=== PATIENT | female | born 2000 | race Caucasian/White ===

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

== ENCOUNTER 2021-02-09 01:56 | Inpatient (IN) ==
[2021-02-09] MEDS ORDERED: OXYTOCIN 30 UNITS/500 ML BAG IV PRN ×3 (03:31→14:23)
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
[2021-02-09 04:09] LABS: Hematocrit (blood only) 35.8 % (37-47); Mean Corpuscular Hemoglobin 27.3 pg (25-34); Mean Corpuscular Hgb Conc 33.5 g/dL (32-36); Mean Corpuscular Volume 81.4 fL (80-100); Mean Platelet Volume 9.1 fL (7.4-10.4); Platelet Count 264 K/uL (130-400); RDW Standard Deviation 41.6 fL (36.4-46.3); White Blood Count 10.83 K/uL (4.8-10.8)
[2021-02-09] MEDS: LACTATED RINGER'S 1,000 ML IV PRN ×3 (06:04→12:39)
[2021-02-09] MEDS ORDERED: ePHEDrine sulfate 50 MG/ML AMP ONE (06:33)
[2021-02-09] MEDS ORDERED: SODIUM CHLORIDE 0.9% INJ 10 ML VIAL ONE (06:33)
[2021-02-09] MEDS ORDERED: BUPIVACAINE 0.25% 30 ML VIAL ONE (06:33)
[2021-02-09] MEDS ORDERED: fentaNYL 2MCG/ML ROPIVACAINE 1.25MG/ML 100 ML BAG EPI ONE (06:34)
[2021-02-09] MEDS ORDERED: fentaNYL citrate 100 MCG/2 ML VIAL ONE (06:34)
[2021-02-09] MEDS ORDERED: diphenhydrAMINE 50 MG/ML VIAL IV PRN (06:38)
[2021-02-09] MEDS ORDERED: NALOXONE HCL 0.4 MG/1 ML VIAL/CARP IV PRN (06:38)
[2021-02-09] MEDS ORDERED: NALOXONE HCL 1 MG in SODIUM CHLORIDE 0.9% 1000ML 1,000 ML IV PRN (06:38)
[2021-02-09] MEDS ORDERED: fentaNYL 2MCG/ML ROPIVACAINE 1.25MG/ML 100 ML BAG EPI PRN (06:38)
[2021-02-09] MEDS ORDERED: ONDANSETRON INJ 2 MG/ML 2 ML VIAL IV PRN (06:38)
[2021-02-09] MEDS ORDERED: ePHEDrine sulfate 50 MG/ML AMP IV PRN (06:38)
[2021-02-09] MEDS ORDERED: fentaNYL citrate 100 MCG/2 ML VIAL IV PRN (06:38)
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
[2021-02-09] MEDS ORDERED: SODIUM CHLORIDE 0.9% 1000ML 1,000 ML IV PRN (07:46)
[2021-02-09] MEDS ORDERED: DEXTROSE 5% 1,000 ML IV PRN (07:46)
[2021-02-09] MEDS ORDERED: DEXTROSE 50% 50 ML SYRINGE IV PRN ×2 (07:46→17:00)
[2021-02-09] MEDS ORDERED: INSULIN REGULAR 250 UNITS in SODIUM CHLORIDE 0.9% 247.5 ML IV PRN (08:14)
--- NOTE | 2021-02-09 11:35 | Labor Progress Brief Note ---
Date of Service February 09, 2021 Subjective Patient undergoing IOL for PROM. Recent variable decels noted by RN therefore pitocin off, resusc measures taken. Comfortable with epidural. Assessment & Plan (1) Full-term premature rupture of membranes (PROM) with unknown onset of labor: IOL (2) Type 2 diabetes mellitus affecting , antepartum: Insulin protocol Admission and Anticipated Discharge Date Admission Date: February 09, 2021 Physical Exam Physical Exam: lip / 100 / 0 Clear LOF [place] Q3 FHT cat 2 with deep variables during each contraction FSE and IUPC placed without difficulty after discussing r/b/a with patient and FOB. Possible amnioinfusion was the reason for IUPC. FSE placed to allow transition to all-internal monitors for improved patient comfort. After that point, patient repositioned and monitoring showed improvement to Cat 1. Results & Data ([facility]) Vital Signs (Past 12 Hours) Vital Signs Temp Pulse Resp BP Pulse Ox 02/09/21 11:29 86 100 02/09/21 11:24 81 100 02/09/21 11:21 84 121/66 02/09/21 11:19 87 99 02/09/21 11:14 88 100 02/09/21 11:09 82 100 02/09/21 11:06 80 119/64 02/09/21 11:04 78 100 02/09/21 10:59 82 100 02/09/21 10:54 86 97 02/09/21 10:51 82 115/65 02/09/21 10:49 85 97 02/09/21 10:44 73 98 02/09/21 10:39 78 98 02/09/21 10:37 76 108/59 L 02/09/21 10:34 82 97 02/09/21 10:29 89 97 02/09/21 10:24 80 97 02/09/21 10:22 75 112/64 02/09/21 10:19 81 98 02/09/21 10:14 83 98 02/09/21 10:09 78 98 02/09/21 10:06 87 128/58 L 02/09/21 10:04 82 98 02/09/21 09:59 89 18 98 02/09/21 09:54 81 98 02/09/21 09:51 90 114/70 02/09/21 09:49 84 98 02/09/21 09:44 91 H 98 02/09/21 09:39 77 98 02/09/21 09:36 82 108/67 02/09/21 09:34 79 99 02/09/21 09:29 80 20 98 02/09/21 09:24 83 99 02/09/21 09:21 78 112/69 02/09/21 09:19 79 98 02/09/21 09:14 78 98 02/09/21 09:09 84 99 02/09/21 09:07 84 117/69 02/09/21 09:04 92 H 98 02/09/21 09:00 20 02/09/21 08:59 76 98 02/09/21 08:54 86 98 02/09/21 08:52 84 110/66 02/09/21 08:49 101 H 98 02/09/21 08:44 87 97 02/09/21 08:39 85 97 02/09/21 08:36 87 101/57 L 02/09/21 08:34 88 98 02/09/21 08:30 20 02/09/21 08:29 88 97 02/09/21 08:26 82 94 02/09/21 08:24 96 H 99 02/09/21 08:21 75 106/58 L 02/09/21 08:19 80 97 02/09/21 08:14 87 98 02/09/21 08:09 86 97 02/09/21 08:06 81 106/61 02/09/21 08:04 87 96 02/09/21 07:59 79 20 96 02/09/21 07:54 85 97 02/09/21 07:51 92 H 107/60 02/09/21 07:49 94 H 98 02/09/21 07:44 82 97 02/09/21 07:39 89 98 02/09/21 07:34 99 H 97 02/09/21 07:32 88 110/66 02/09/21 07:29 91 H 20 98 02 07:26 85 102/60 02/09/21 07:24 85 98 02/09/21 07:20 82 117/71 02/09/21 07:19 84 99 02/09/21 07:17 90 112/63 02 07:14 89 108/63 99 02/09/21 07:10 91 H 119/70 07/02/21 07:09 102 H 99 02/09/21 07:07 88 120/70 02/09/21 07:05 96 H 93 02/09/21 07:04 96 H 98 02/09/21 07:01 96 H 117/69 02/09/21 06:59 89 99 02/09/21 06:56 97.7 F 20 02/09/21 06:54 88 98 02/09/21 06:01 85 18 109/58 L 02/09/21 05:02 91 H 18 107/63 02/09/21 04:40 98.1 F 16 02/09/21 03:59 85 118/74 02/09/21 03:28 98.1 F 18 02/09/21 02:10 18 02/09/21 02:07 98.1 F 86 18 119/68 Coding Level of Care Code None Diagnoses Full-term premature rupture of membranes (PROM) with unknown onset of labor O42.90 Type 2 diabetes mellitus affecting , antepartum O24.119
--- NOTE | 2021-02-09 14:04 | Delivery Summary ---
Vaginal Delivery Summary Date of Service February 09, 2021 Vaginal Delivery Summary DIAGNOSES: 1. Romeo intrauterine at 38w2d gestation. 2. PROM, IOL. 3. Group B Streptococcus Neg. PROCEDURE: Spontaneous vaginal delivery and repair of first degree laceration. SURGEON: Mica Cook MD. TUBER MACHINE OPERATOR HELPER: None. ESTIMATED BLOOD LOSS: 450 mL. COMPLICATIONS: None. PLACENTA: Spontaneous and intact with a 3-vessel cord. DISPOSITION: Stable to labor and delivery. DESCRIPTION: The patient pushed well and brought the head to in LOP position with asynclitism. The infant's head was allowed to deliver with contraction force and no further active pushing, with the perineum protected during this time. There was a double loop of nuchal cord, reduced at the perineum. The shoulders and body delivered without any difficulty, and the was placed on the maternal abdomen. It was vigorous and moving all extremities, and making respiratory efforts. The cord was doubly clamped by the MD and then cut by the FOB. The placenta delivered spontaneously and was noted to be intact and with a 3VC. The cervix, vagina and perineum were examined and were found to have a first degree laceration of the perineum which was reapproximated with vicryl suture. The fundus was firm and lochia minimal immediately after delivery. [facility] Vaginal Delivery Charge Vaginal Delivery Codes: 74689 global code for the antepartum, delivery, and post-
[2021-02-09] MEDS ORDERED: oxyCODONE/ACETAMINOPHEN 5mg/325mg TAB PO PRN (14:23)
[2021-02-09] MEDS ORDERED: BENZOCAINE 20% AER SPR 82.5 GM CAN EXT PRN (14:23)
[2021-02-09] MEDS ORDERED: SUPERCREAM 0.870% 15 GM JAR EXT PRN (14:23)
[2021-02-09] MEDS ORDERED: HYDROCORTISONE ACETATE 25 MG SUPP PR PRN (14:23)
[2021-02-09] MEDS ORDERED: LACTATED RINGER'S 1,000 ML IV SCH (14:23)
[2021-02-09] MEDS ORDERED: DIPHTHERIA/TETANUS/PERTUSSIS 0.5 ML SYR/VIAL IM ONE (14:23)
[2021-02-09] MEDS ORDERED: ACETAMINOPHEN 325 MG TAB PO PRN (14:23)
--- NOTE | 2021-02-09 15:20 | Anesthesiology Progress Note ---
Date of Service February 09, 2021 Anesthesia Post Procedure Vital Signs Vital Signs: Temp Pulse Resp BP Pulse Ox 02/09/21 15:06 101 H 103/59 L 02/09/21 14:51 99 H 109/59 L 02/09/21 14:36 98 H 108/56 L 02/09/21 14:21 87 112/66 02/09/21 14:06 110 H 110/65 02/09/21 13:51 105 H 122/73 02/09/21 13:49 125 H 99 02/09/21 13:44 97 H 99 02/09/21 13:39 92 H 98 02/09/21 13:36 90 119/76 02/09/21 13:34 82 100 02/09/21 13:29 84 100 02/09/21 13:24 79 100 02/09/21 13:21 87 116/73 02/09/21 13:19 93 H 100 02/09/21 13:14 89 99 02/09/21 13:09 87 99 02/09/21 13:06 83 112/70 02/09/21 13:04 83 99 02/09/21 12:59 88 100 02/09/21 12:54 84 100 02/09/21 12:51 87 104/70 02/09/21 12:49 85 100 02/09/21 12:44 87 100 02/09/21 12:39 98 H 100 02/09/21 12:36 86 119/67 02/09/21 12:34 87 98 02/09/21 12:29 84 100 02/09/21 12:24 89 100 02/09/21 12:21 87 123/69 02/09/21 12:19 92 H 100 02/09/21 12:14 90 99 02/09/21 12:09 84 99 02/09/21 12:06 86 117/73 02/09/21 12:04 83 100 02/09/21 11:59 85 100 02/09/21 11:54 85 100 02/09/21 11:51 91 H 121/71 02/09/21 11:49 87 100 02/09/21 11:44 87 100 02/09/21 11:39 89 100 02/09/21 11:36 36.7 C 84 20 119/64 02/09/21 11:34 85 100 07/02 11:29 86 100 07/02 11:24 81 100 07/0221 11:21 84 121/66 0702 11:19 87 99 0702 11:14 88 100 07/02 11:09 82 100 02 11:06 80 119/64 02/09/21 11:04 78 100 02/09/21 10:59 82 100 02 10:54 86 97 02 10:51 82 115/65 02/09/21 10:49 85 97 02 10:44 73 98 02 10:39 78 98 02/09/21 10:37 76 108/59 L 02/09/21 10:34 82 97 02/09/21 10:29 89 97 02/09/21 10:24 80 97 02/09/21 10:22 75 112/64 02/09/21 10:19 81 98 02/09/21 10:14 83 98 02/09/21 10:09 78 98 02/09/21 10:06 87 128/58 L 02/09/21 10:04 82 98 02/09/21 09:59 89 18 98 02/09/21 09:54 81 98 02/09/21 09:51 90 114/70 02/09/21 09:49 84 98 02 09:44 91 H 98 02/09/21 09:39 77 98 02 09:36 82 108/67 02/09/21 09:34 79 99 0702 09:29 80 20 98 02/09/21 09:24 83 99 0702 09:21 78 112/69 02/09/21 09:19 79 98 07 09:14 78 98 02 09:09 84 99 02 09:07 84 117/69 02 09:04 92 H 98 02/09/21 09:00 20 02/09/21 08:59 76 98 02 08:54 86 98 02 08:52 84 110/66 02/09/21 08:49 101 H 98 02 08:44 87 97 02/09/21 08:39 85 97 02/09/21 08:36 87 101/57 L 02/09/21 08:34 88 98 02/09/21 08:30 20 02/09/21 08:29 88 97 02/09/21 08:26 82 94 02/09/21 08:24 96 H 99 02/09/21 08:21 75 106/58 L 02/09/21 08:19 80 97 02/09/21 08:14 87 98 02/09/21 08:09 86 97 02/09/21 08:06 81 106/61 02/09/21 08:04 87 96 02/09/21 07:59 79 20 96 02/09/21 07:54 85 97 02/09/21 07:51 92 H 107/60 02/09/21 07:49 94 H 98 02/09/21 07:44 82 97 02/09/21 07:39 89 98 02/09/21 07:34 99 H 97 02/09/21 07:32 88 110/66 02/09/21 07:29 91 H 20 98 02/09/21 07:26 85 102/60 02/09/21 07:24 85 98 02/09/21 07:20 82 117/71 02/09/21 07:19 84 99 02/09/21 07:17 90 112/63 02/09/21 07:14 89 108/63 99 02/09/21 07:10 91 H 119/70 02/09/21 07:09 102 H 99 02/09/21 07:07 88 120/70 02/09/21 07:05 96 H 93 02/09/21 07:04 96 H 98 02/09/21 07:01 96 H 117/69 02/09/21 06:59 89 99 02/09/21 06:56 36.5 C 20 02/09/21 06:54 88 98 02/09/21 06:01 85 18 109/58 L 02/09/21 05:02 91 H 18 107/63 02/09/21 04:40 36.7 C 16 02/09/21 03:59 85 118/74 02/09/21 03:28 36.7 C 18 02/09/21 02:10 18 02/09/21 02:07 36.7 C 86 18 119/68 Transfer of Care Handoff Completed per policy Notes Mental Status: alert / awake / arousable and participated in evaluation Patient Amnestic to Procedure: Yes Nausea / Vomiting: adequately controlled Pain: adequately controlled Airway Patency, RR, SpO2: stable & adequate BP & HR: stable & adequate Hydration State: stable & adequate Anesthetic Complications: no major complications apparent and Pt Satisfied with anesthetic care
--- NOTE | 2021-02-09 16:26 | Communication Note ---
Date of Service: February 09, [address] Gracia, hospitalist, re: helping with insulin dose decisions. Patient cannot recall what her pre- insulin dose levels we re, but believes she was using both long-acting overnight and short-acting postprandial insulin. Last FSBG after lunch was 173. Dr. Gracia aware and agreeable to placing orders for insulin starting doses for now, and will see the patient when able. Not a STAT consult, and appreciate the assistance with this patient's diabetes management.
[2021-02-09] MEDS ORDERED: PHARMACY GLYCEMIC MGMT CONSULT PRN (16:58)
[2021-02-09] MEDS ORDERED: PHARMACY GLYCEMIC MGMT CONSULT SCH (16:58)
[2021-02-09] MEDS ORDERED: GLUCOSE 40% GEL 15 GM TUBE PO PRN (17:00)
[2021-02-09] MEDS ORDERED: GLUCOSE 10 TABS/TUBE PO PRN (17:00)
[2021-02-09] MEDS ORDERED: CARBOHYDRATES FOR HYPOGLYCEMIA PO PRN (17:00)
[2021-02-09] MEDS ORDERED: GLUCAGON FOR INJ 1 MG VIAL IM PRN (17:00)
--- NOTE | 2021-02-09 17:18 | Pharmacy Report ---
Pharmacy Glycemic Short Note 2 - Date of Service February 09, 2021 - Glycemic Short BSG Results (Last 24 hours): 02/09/21 02/09/21 02/09/21 02:37 04:41 06:58 POC Glucose 99 89 96 02/09/21 02/09/21 02/09/21 07:44 08:43 09:46 POC Glucose 120 H 113 H 111 H 02/09/21 02/09/21 02/09/21 10:48 11:47 12:51 POC Glucose 102 H 95 101 H 02/09/21 02/09/21 15:18 16:00 POC Glucose 149 H 173 H OUTPATIENT ANTIDIABETIC REGIMEN: * While : Novolin 38 units SQ HS, Novolog ~8-10 units with meals * Prior to : Novolin 20 units SQ HS, Novolog 5-8 units with meals ASSESSMENT: * 21 year old female, s/p spontaneous vaginal delivery, hyperglycemic , PMH significant for JERRELL * Spoke with patient and reviewed insulin use as outpatient, as reported above, and plans for inpatient care * Patient was on insulin drip at 0.5-1units/hr during labor, now discontinued * Patient ordered diet to begin with dinner tonight * Patient requires reduced, pre- SQ insulin dosing at this time, will begin and titrate to goal PLAN FOR INPATIENT GLYCEMIC CONTROL: * Basal insulin * NPH 20 units SQ HS (will begin now with dinner tonight, as BSG is 173mg/dl) * Bolus insulin * NovoLog per scale ACHS or Q6hrs while NPO * Goal Range: Low 110 mg/dL - High 140 mg/dL * Correction Factor: 25 mg/dL/unit * Nutritional / Prandial insulin per carb ratio of 1 unit per 8 grams CHO consumed PLAN FOR DISCHARGE: * Follow up with endocrinology MARSHA * Novolin 20 units SQ HS * Novolog 5-8 units with meals
[2021-02-09] MEDS ORDERED: INSULIN HUMAN NPH SC SCH (17:30)
[2021-02-09] MEDS: IBUPROFEN 600 MG TAB PO PRN (17:53)
[2021-02-09] MEDS: INSULIN ASPART 100 UNITS/ML 3 ML PEN SC SCH ×2 (18:08→20:50)
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
[2021-02-09] MEDS: DOCUSATE SODIUM 100 MG CAP PO SCH (20:49)
[2021-02-10] MEDS: IBUPROFEN 600 MG TAB PO PRN ×2 (06:03→16:17)
[2021-02-10 06:04] LABS: Hematocrit (blood only) 31.5 % (37-47); Hemoglobin 10.2 g/dL (12.0-16.0); Mean Corpuscular Hemoglobin 27.2 pg (25-34); Mean Corpuscular Hgb Conc 32.4 g/dL (32-36); Mean Platelet Volume 9.4 fL (7.4-10.4); Platelet Count 234 K/uL (130-400); RDW Coefficient of Variation 14.3 % (11.5-14.5); RDW Standard Deviation 44.1 fL (36.4-46.3); Red Blood Count 3.75 M/uL (4.2-5.4); White Blood Count 10.72 K/uL (4.8-10.8)
--- NOTE | 2021-02-10 07:38 | Obstetrical Progress Note ---
Date of Service February 10, 2021 Assessment & Plan (1) Type 2 diabetes mellitus affecting , antepartum: Managing with insulin and intermittent BG checks, appreciate medicine team input, to f/u with endocrinology after d/c home (2) state: Recovering well from delivery Subjective Ambulation: ambulating normally Voiding: no voiding problems Passing Gas:: Yes Diet Tolerance:: regular diet Lochia:: Small Feeding Type:: bottle feeding Current Pain Level(1-10): 0 Physical Exam Constitutional WD/WN, vitals as above Eyes PERRL, conjunctivae normal, anicteric sclerae ENMT external ear and nose normal, oropharynx normal Neck trachea midline, no thyromegaly Respiratory normal respiratory effort and able to speak in complete sentences; no respiratory distress, no labored breathing and does not use accessory muscles Cardiovascular Rate/Rhythm: regular rate and regular rhythm Extremities: no calf tenderness and no pedal edema Gastrointestinal (Abdomen) Inspection/Auscultation: abdomen not distended Musculoskeletal no cyanosis or clubbing, extremities motor strength 5/5 Skin no rashes, warm and dry Neurologic patellar DTR's 2+ bilat, sensation intact Psychiatric A+Ox3, euthymic affect Genitourinary Speculum/Bimanual Exam: uterus nontender OB Exam Abdomen: + fundal height (at umbilicus) Fundus: + firm Results & Data ([facility]) Vital Signs (Past 12 Hours) Vital Signs Temp Pulse Resp BP Pulse Ox 02/10/21 03:00 98.2 F 74 16 98/63 L 97 02/09/21 23:50 97.7 F 82 18 98/61 L 02/09/21 23:17 98.2 F 81 16 105/71 98
[2021-02-10] MEDS: PRENATAL VITAMIN 1 TAB PO SCH (07:39)
[2021-02-10] MEDS: DOCUSATE SODIUM 100 MG CAP PO SCH ×2 (07:39→20:38)
[2021-02-10] MEDS: INSULIN ASPART 100 UNITS/ML 3 ML PEN SC SCH ×4 (08:16→20:54)
--- NOTE | 2021-02-10 13:20 | Pharmacy Report ---
Pharmacy Glycemic Short Note 2 - Date of Service February 10, 2021 - Glycemic Short BSG Results (Last 24 hours): 02/09/21 02/09/21 02/09/21 15:18 16:00 17:37 POC Glucose 149 H 173 H 153 H 02/09/21 02/10/21 02/10/21 20:46 07:30 11:47 POC Glucose 126 H 72 131 H 02/10/21 11:49 POC Glucose 127 H OUTPATIENT ANTIDIABETIC REGIMEN: * While : Novolin 38 units SQ HS, Novolog ~8-10 units with meals * Prior to : Novolin 20 units SQ HS, Novolog 5-8 units with meals ASSESSMENT: 02/10 * Patient received 20 units NPH last evening and 10 units of bolus insulin after insulin drip discontinued * Fasting BSG 72 mg/dL - plan to continue with NPH in evening. PO intake improving since yesterday. AM insulin administration for correctional insulin was zero. Patient PO intake much improved at lunchtime. Will continue with same novolog parameters for now 02/09 * 21 year old female, s/p spontaneous vaginal delivery, hyperglycemic , PMH significant for JERRELL * Spoke with patient and reviewed insulin use as outpatient, as reported above, and plans for inpatient care * Patient was on insulin drip at 0.5-1units/hr during labor, now discontinued * Patient ordered diet to begin with dinner tonight * Patient requires reduced, pre- SQ insulin dosing at this time, will begin and titrate to goal PLAN FOR INPATIENT GLYCEMIC CONTROL: * Basal insulin * NPH 20 units SQ daily with dinner * Bolus insulin * NovoLog per scale ACHS or Q6hrs while NPO * Goal Range: Low 110 mg/dL - High 140 mg/dL * Correction Factor: 30 mg/dL/unit * Nutritional / Prandial insulin per carb ratio of 1 unit per 12 grams CHO consumed PLAN FOR DISCHARGE: * Follow up with endocrinology MARSHA * Novolin 20 units SQ HS * Novolog 5-8 units with meals
--- NOTE | 2021-02-10 17:17 | Hospitalist Progress Note ---
Date of Service February 10, 2021 Assessment & Plan (1) JERRELL (maturity onset diabetes mellitus in young): Patient with much improved control of her diabetes compared to 9 months ago. Blood sugars much better controlled with starting NPH . She did have some mild hyperglycemia today due to eating a large lunch with lava cake as a dessert-this was corrected with NovoLog Appreciate pharmacy glycemic control assistance-I discussed her case with pharmacist -Upon discharge, she should continue on NPH 20 units at bedtime which was her prepregnancy dosing -Continue NovoLog 5 to 8 units with meals upon discharge -She will follow up with endocrinology after discharge within 1 to 2 weeks -Changes to insulin regimen made on home medication reconciliation for discharge Otherwise doing well Hospital service will sign off at this time-please feel free to reconsult if needed Admission and Anticipated Discharge Date Admission Date: February 09, 2021 Subjective Patient feels well. She is tired and has a very minor headache, but otherwise no issues. No chest pain or shortness of breath. Has some mild lower extremity edema. Blood sugars were very well controlled this morning but then she had a large special lunch with a lava cake for dessert and her blood sugar spiked up to 183. She feels very comfortable managing her insulin at home. Review of Systems Review of Systems: All systems reviewed & are unremarkable except as noted in HPI & below Physical Exam Constitutional: WD/WN, vitals as above Eyes: + anicteric sclerae Neck: trachea midline, no thyromegaly Respiratory: normal respiratory effort, lungs clear to auscultation Cardiovascular: Rate/Rhythm: regular rate and regular rhythm Heart Sounds: no murmur Extremities: + edema (Trace nonpitting edema legs bilaterally to the mid tibia) Musculoskeletal: Extremities: extremities normal to inspection; no cyanosis and no clubbing Skin: no rashes, warm and dry Neurologic: moves all extremities and awake; no focal motor deficits Psychiatric: A+Ox3, euthymic affect Results & Data Results & Data ([facility]) Vital Signs (Past 12 Hours) Vital Signs Temp Pulse Resp BP Pulse Ox 02/10/21 16:00 37.0 C 98 H 18 110/70 96 02/10/21 07:40 36.7 C 80 16 97/62 L 95 Laboratory Results 02/10/21 02/10/21 02/10/21 Range/Units 16:51 11:49 11:47 WBC (4.8-10.8) K/uL RBC (4.2-5.4) M/uL Hgb (12.0-16.0) g/dL Hct (37-47) % MCV (80-100) fL MCH (25-34) pg MCHC (32-36) g/dL RDW Std Deviation (36.4-46.3) fL RDW Coeff of Veronica (11.5-14.5) % Plt Count (130-400) K/uL MPV (7.4-10.4) fL POC Glucose 182 H 127 H 131 H (70-99) mg/dl 02/10/21 02/10/21 02/09/21 Range/Units 07:30 05:33 20:46 WBC 10.72 (4.8-10.8) K/uL RBC 3.75 L (4.2-5.4) M/uL Hgb 10.2 L (12.0-16.0) g/dL Hct 31.5 L (37-47) % MCV 84.0 (80-100) fL MCH 27.2 (25-34) pg MCHC 32.4 (32-36) g/dL RDW Std Deviation 44.1 (36.4-46.3) fL RDW Coeff of Veronica 14.3 (11.5-14.5) % Plt Count 234 (130-400) K/uL MPV 9.4 (7.4-10.4) fL POC Glucose 72 126 H (70-99) mg/dl 02/09/21 Range/Units 17:37 WBC (4.8-10.8) K/uL RBC (4.2-5.4) M/uL Hgb (12.0-16.0) g/dL Hct (37-47) % MCV (80-100) fL MCH (25-34) pg MCHC (32-36) g/dL RDW Std Deviation (36.4-46.3) fL RDW Coeff of Veronica (11.5-14.5) % Plt Count (130-400) K/uL MPV (7.4-10.4) fL POC Glucose 153 H (70-99) mg/dl PG Care Time/CCT Total # of Minutes Spent Total Time Spent with Patient: Total time spent is greater than 50% in coordination of care (as documented) at patient's floor/unit and/or counseling patient: Coding Level of Care Code 59560 Subseq Hosp Care Lvl 1 Diagnoses JERRELL (maturity onset diabetes mellitus in young) E13.9
[2021-02-10] MEDS ORDERED: INSULIN HUMAN NPH SC SCH (18:00)
[2021-02-11 06:48] LABS: Hematocrit (blood only) 31.6 % (37-47); Hemoglobin 10.4 g/dL (12.0-16.0)
[2021-02-11] MEDS: PRENATAL VITAMIN 1 TAB PO SCH (07:34)
[2021-02-11] MEDS: DOCUSATE SODIUM 100 MG CAP PO SCH (07:34)
[2021-02-11] MEDS: IBUPROFEN 600 MG TAB PO PRN (07:35)
[2021-02-11] MEDS: INSULIN ASPART 100 UNITS/ML 3 ML PEN SC SCH (08:19)
--- NOTE | 2021-02-11 09:07 | Obstetrical Progress Note ---
Date of Service February 11, 2021 Assessment & Plan (1) state: day 2 following . Doing well. Diabetic management per medicine plan. Stable for discharge Subjective Ambulation: ambulating normally Voiding: no voiding problems Passing Gas:: Yes Diet Tolerance:: clear liquids Lochia:: Moderate Physical Exam Constitutional WD/WN, vitals as above Respiratory normal respiratory effort; no respiratory distress and no labored breathing Gastrointestinal (Abdomen) Inspection/Auscultation: abdomen normal to inspection; abdomen not distended Percussion/Palpation: abdomen soft; abdomen nontender, no guarding and abdomen not rigid Genitourinary OB Exam Abdomen: + fundal height Fundus: + firm and + relation to umbilicus (Below); not tender and not boggy Results & Data ([facility]) Vital Signs (Past 12 Hours) Vital Signs Temp Pulse Resp BP 02/10/21 23:15 36.4 C L 77 18 117/77
== END 2021-02-11 11:00 | disposition home or self-care (01) | DRG 805 ==
LOC: OPB 01:56 → 4S1 02:01 → 4S2 17:15

== ENCOUNTER 2022-10-25 07:45 | Inpatient (IN) ==
[2022-10-25] MEDS ORDERED: LIDOCAINE 1% LOCAL 20 ML VIAL INFIL PRN (09:23)
[2022-10-25] MEDS ORDERED: OXYTOCIN 30 UNITS/500 ML BAG IV PRN ×3 (09:23→19:16)
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
[2022-10-25] MEDS ORDERED: DEXTROSE 50% 50 ML SYRINGE IV PRN ×3 (09:42→20:00)
[2022-10-25] MEDS ORDERED: DEXTROSE 5% 1,000 ML IV PRN (09:42)
[2022-10-25] MEDS ORDERED: SODIUM CHLORIDE 0.9% 1000ML 1,000 ML IV PRN (09:42)
[2022-10-25] MEDS ORDERED: INSULIN REGULAR 250 UNITS in SODIUM CHLORIDE 0.9% 247.5 ML IV PRN (09:42)
[2022-10-25 09:59] LABS: Hematocrit (blood only) 33.9 % (37.0-47.0); Hemoglobin 11.3 g/dl (12.0-16.0); Mean Corpuscular Hemoglobin 26.7 pg (25.0-34.0); Mean Corpuscular Hgb Conc 33.3 g/dL (32.0-36.0); Mean Platelet Volume 9.6 fL (9.4-12.4); Platelet Count 227 K/uL (130-400); RDW Coefficient of Variation 15.6 % (11.5-14.5); RDW Standard Deviation 44.9 fL (36.4-46.3); Red Blood Count 4.24 M/uL (4.20-5.40); White Blood Count 10.11 K/ul (4.8-10.8)
[2022-10-25] MEDS: LACTATED RINGER'S 1,000 ML IV PRN ×2 (10:10→14:07)
[2022-10-25] MEDS ORDERED: GLUCOSE 40% GEL 15 GM TUBE PO PRN ×2 (10:30→20:00)
[2022-10-25] MEDS ORDERED: CARBOHYDRATES FOR HYPOGLYCEMIA PO PRN ×2 (10:30→20:00)
[2022-10-25] MEDS ORDERED: GLUCAGON FOR INJ 1 MG VIAL IM PRN ×2 (10:30→20:00)
[2022-10-25] MEDS ORDERED: GLUCOSE 10 TAB/TUBE PO PRN ×2 (10:30→20:00)
[2022-10-25] MEDS ORDERED: BUPIVACAINE 0.25% PF 30 ML VIAL ONE (13:14)
[2022-10-25] MEDS ORDERED: fentaNYL citrate PF 100 MCG/2 ML VIAL ONE (13:14)
[2022-10-25] MEDS ORDERED: SODIUM CHLORIDE 0.9% PF INJ 10 ML VIAL ONE (13:14)
[2022-10-25] MEDS ORDERED: LIDOCAINE 2%/EPINEPHRINE 1:200,000 20 ML PF ONE (13:14)
[2022-10-25] MEDS ORDERED: ePHEDrine sulfate 50 MG/ML AMP ONE (13:14)
[2022-10-25] MEDS ORDERED: fentaNYL 2MCG/ML ROPIVACAINE 1.25MG/ML 100 ML BAG EPI ONE (13:15)
[2022-10-25] MEDS ORDERED: NALOXONE HCL 1 MG in SODIUM CHLORIDE 0.9% 1000ML 1,000 ML IV PRN (13:46)
[2022-10-25] MEDS ORDERED: fentaNYL 2MCG/ML ROPIVACAINE 1.25MG/ML 100 ML BAG EPI PRN (13:46)
[2022-10-25] MEDS ORDERED: NALBUPHINE HCL INJ 10 MG/ML AMP IV PRN (13:46)
[2022-10-25] MEDS ORDERED: PROMETHAZINE HCL 6.25 MG in SODIUM CHLORIDE 0.9% 50 ML IV PRN (13:46)
[2022-10-25] MEDS ORDERED: ePHEDrine sulfate 50 MG/ML AMP IV PRN (13:46)
[2022-10-25] MEDS ORDERED: NALOXONE HCL 0.4 MG/1 ML VIAL/CARP IV PRN (13:46)
[2022-10-25] MEDS ORDERED: diphenhydrAMINE 50 MG/ML VIAL IV PRN (13:46)
[2022-10-25] MEDS ORDERED: ONDANSETRON INJ 2 MG/ML 2 ML VIAL IV PRN (13:46)
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
--- NOTE | 2022-10-25 19:09 | Delivery Summary ---
Vaginal Delivery Summary Date of Service October 25, 2022 Vaginal Delivery Summary induction at 39 weeks GA for DM in . 3cm, Pitocin, then epidural, SROM. Progressed rapidly to fully dilated and delivered over 1 contraction. OA, head delivered, then gentle traction on the baby. Easy delivery, no excess force, live vigorous male . Fluid clear, no nuchal cord. 2nd degree tear repaired with 3-0 vucryl. Placenta delivered with traction, pitocin started, uterine tone good. EBL 250 ml Sponge and instrument counts correct.
[2022-10-25] MEDS ORDERED: ACETAMINOPHEN 325 MG TAB PO PRN (19:16)
[2022-10-25] MEDS ORDERED: HYDROCORTISONE ACETATE 25 MG SUPP PR PRN (19:16)
[2022-10-25] MEDS ORDERED: BENZOCAINE 20% AER SPR 82.5 GM CAN EXT PRN (19:16)
[2022-10-25] MEDS ORDERED: DIPHTHERIA/TETANUS/PERTUSSIS 0.5mL SYR/VIAL (Age 7+yrs) IM ONE (19:16)
[2022-10-25] MEDS ORDERED: bisacodyL 10 MG SUPP PR PRN (19:16)
[2022-10-25] MEDS ORDERED: PHARMACY GLYCEMIC MGMT CONSULT PRN (19:16)
[2022-10-25] MEDS ORDERED: oxyCODONE/ACETAMINOPHEN 5mg/325mg TAB PO PRN (19:16)
[2022-10-25] MEDS ORDERED: IBUPROFEN 600 MG TAB PO ONE (19:20)
--- NOTE | 2022-10-25 19:31 | Anesthesia Procedure Note ---
Date of Service October 25, 2022 Anesthesia Post Epidural Note Vital Signs Vital Signs: Temp Pulse Resp BP Pulse Ox 36.6 C 94 H 18 110/72 98 10/25/22 15:26 10/25/22 19:26 10/25/22 15:56 10/25/22 19:26 10/25/22 17:20 Notes Mental Status: alert / awake / arousable Nausea / Vomiting: adequately controlled Pain: adequately controlled Airway Patency, RR, SpO2: stable & adequate BP & HR: stable & adequate Hydration State: stable & adequate Neuraxial Anesthesia: was administered and sensory block is resolving Anesthetic Complications: no major complications apparent and Pt Satisfied with anesthetic care Epidural: Removed without complications and With tip intact
[2022-10-25] MEDS ORDERED: INSULIN HUMAN NPH SC ONE (20:00)
--- NOTE | 2022-10-25 21:08 | Pharmacy Report ---
Pharmacy Glycemic Short Note 2 - Date of Service October 25, 2022 - Glycemic Short BSG Results (Last 24 hours): 10/25/22 10/25/22 10/25/22 09:38 10:50 11:44 POC Glucose 146 H 124 H 127 H 10/25/22 10/25/22 10/25/22 12:47 13:47 14:50 POC Glucose 113 H 109 H 109 H 10/25/22 10/25/22 10/25/22 15:45 16:47 20:17 POC Glucose 103 H 101 H 175 H OUTPATIENT ANTIDIABETIC REGIMEN: * Prepregnancy: NPH 12-15 units HS; reports using ~2-3 units for every 10 grams of carbs ASSESSMENT: * Patient , discussed prepregnancy regimen with patient. She is comfortable taking 12 units of NPH tonight which was low end of her pre- dosing * Will start novolog with looser coverage initially given state and typical reduction 50% * Overnight BSG checks PLAN FOR INPATIENT GLYCEMIC CONTROL: * Hold outpatient oral diabetes medications * Basal insulin * NPH 12 units * Bolus insulin * NovoLog per scale ACHS or Q6hrs while NPO * Goal Range: Low 110 mg/dL - High 140 mg/dL * Correction Factor: 45 mg/dL/unit * Nutritional / Prandial insulin per carb ratio of 1 unit per 12 grams CHO consumed
[2022-10-25] MEDS: INSULIN ASPART PER UNIT CHARGE SC SCH (21:10)
[2022-10-25] MEDS: DOCUSATE SODIUM 100 MG CAP PO SCH (21:21)
[2022-10-26] MEDS: INSULIN ASPART PER UNIT CHARGE SC SCH ×5 (01:00→12:13)
[2022-10-26] MEDS: IBUPROFEN 600 MG TAB PO PRN ×2 (04:14→08:43)
[2022-10-26 07:24] LABS: Hematocrit (blood only) 32.6 % (37.0-47.0); Hemoglobin 10.7 g/dl (12.0-16.0); Mean Corpuscular Hemoglobin 26.7 pg (25.0-34.0); Mean Corpuscular Hgb Conc 32.8 g/dL (32.0-36.0); Mean Corpuscular Volume 81.3 fL (80.0-100.0); Mean Platelet Volume 9.7 fL (9.4-12.4); Platelet Count 239 K/uL (130-400); RDW Coefficient of Variation 15.5 % (11.5-14.5); RDW Standard Deviation 45.1 fL (36.4-46.3); Red Blood Count 4.01 M/uL (4.20-5.40); White Blood Count 9.13 K/ul (4.8-10.8)
[2022-10-26] MEDS ORDERED: PRENATAL VITAMIN 1 TAB PO SCH (08:00)
[2022-10-26] MEDS: DOCUSATE SODIUM 100 MG CAP PO SCH (08:43)
--- NOTE | 2022-10-26 08:54 | Obstetrical Progress Note ---
Date of Service October 26, 2022 Assessment & Plan (1) Type 1 diabetes mellitus during : (2) Encounter for assessment: Plan Doing well. Plan d/c at 24 hours. Instructions given. Day #:: 1 Subjective Ambulation: ambulating normally Voiding: no voiding problems Passing Gas:: Yes Diet Tolerance:: regular diet Lochia:: Small Feeding Type:: breast feeding Physical Exam Constitutional WD/WN, vitals as above Respiratory normal respiratory effort, lungs clear to auscultation Cardiovascular RRR, no murmur, no edema Extremities: no calf tenderness and no edema Gastrointestinal (Abdomen) soft, nt, nd, ff/nt at u Results & Data Vital Signs (Past 12 Hours) Vital Signs Temp Pulse Resp BP Pulse Ox O2 Del Method 10/26/22 04:34 36.3 C L 80 18 104/72 99 Room Air 10/26/22 00:00 36.8 C 82 18 108/68 10/25/22 21:00 36.7 C 92 H 18 103/70 98 Room Air
[2022-10-26] MEDS ORDERED: LEVOTHYROXINE SODIUM 50 MCG TABLET PO SCH (09:00)
[2022-10-26] MEDS ORDERED: bisacodyL 5 MG TABEC PO SCH (20:00)
[2022-10-26] MEDS ORDERED: INSULIN HUMAN NPH SC SCH (21:00)
== END 2022-10-26 17:45 | disposition home or self-care (01) | DRG 807 ==
LOC: 4S1 07:45 → 4E2 20:05